=== PATIENT | female | born 1950 | race Caucasian/White ===

== ENCOUNTER 2016-09-13 13:26 | Day surgery (SDC) | payer OTHER ==
[~2016-09-13 13:26] MED LIST: AMLODIPINE BESYL5 MG PO; FUROSEMIDE80 MG PO; GABAPENTIN400 MG PO; GLIPIZIDE XL10 MG PO; LORAZEPAM1 MG PO; NORCO 5/3251 TABLET PO; RENAL CAPS SOFTG1 MG PO; SIMVASTATIN20 MG PO; TRAZODONE HCL150 MG PO; TUMS500 MG PO
[2016-09-13 15:53] LABS: POINT-OF-CARE METER ID UU13113696
[2016-09-13 17:05] LABS: METH RESISTANT S AUREUS PCR NEGATIVE (NEGATIVE)
[2016-09-13 17:08] LABS: PROBE CHECK PASS; SPECIMEN PROCESSING CONTROL PASS
== END 2016-09-13 18:40 | disposition home or self-care (01) ==
LOC: CATH 13:26
PROVIDERS: Surgery
DX: T82.858A Stenosis of other vascular prosthetic devices, implants and grafts, initial encounter (principal); Y83.2 Surgical operation with anastomosis, bypass or graft as the cause of abnormal reaction of the patient, or of later complication, without mention of misadventure at the time of the procedure; N18.6 End stage renal disease; Z99.2 Dependence on renal dialysis; Z88.0 Allergy status to penicillin; Z88.2 Allergy status to sulfonamides; Z88.7 Allergy status to serum and vaccine
CPT/HCPCS: 82948; 87641; C1725; C1769; C1894; J1644; J2250; J2720; J3010; S0020

== ENCOUNTER 2016-09-15 14:23 | Day surgery (SDC) | payer OTHER ==
[~2016-09-15] VITALS: Ht 172.7 cm; Wt 106.0 kg
[2016-09-15 14:57] LABS: POINT-OF-CARE METER ID UU13113696
== END 2016-09-15 17:20 | disposition home or self-care (01) ==
LOC: CATH 14:23
PROVIDERS: Surgery
DX: T82.858A Stenosis of other vascular prosthetic devices, implants and grafts, initial encounter (principal); T82.868A Thrombosis due to vascular prosthetic devices, implants and grafts, initial encounter; Y83.2 Surgical operation with anastomosis, bypass or graft as the cause of abnormal reaction of the patient, or of later complication, without mention of misadventure at the time of the procedure; N18.6 End stage renal disease; Z99.2 Dependence on renal dialysis
CPT/HCPCS: 82948; C1725; C1769; C1894; J1644; J2250; J3010